=== PATIENT | male | born 1955 | race Two or more races ===

== ENCOUNTER 2016-08-03 12:19 | Emergency (ER) | payer MEDICAID ==
[~2016-08-03] VITALS: Ht 170.2 cm; Wt 83.9 kg
[2016-08-03 13:40] LABS: BASOPHILS % (AUTO) 0.8 % (0.0-2.0); EOSINOPHILS % (AUTO) 1.1 % (0.0-3.0); MEAN CORPUSCULAR HEMOGLOBIN 31.9 PG (27.0-31.0); MEAN CORPUSCULAR HGB CONC 34.6 G/DL (32.0-36.0); MEAN CORPUSCULAR VOLUME 92 FL (80-99); MEAN PLATELET VOLUME 9.2 FL (6.5-10.1); MONOCYTES % (AUTO) 9.4 % (1.0-10.0); NEUTROPHILS % (AUTO) 64.7 % (45.0-75.0); PLATELET COUNT 166 K/UL (150-450); RED BLOOD COUNT 5.09 M/UL (4.70-6.10); RED CELL DISTRIBUTION WIDTH 11.6 % (11.6-14.8)
[2016-08-03 14:00] LABS: ACETAMINOPHEN < 10 ug/mL (10-30); ALANINE AMINOTRANSFERASE 224 U/L (3-41); ALBUMIN/GLOBULIN RATIO 1.3 (1.0-2.7); ALCOHOL < 10 mg/dL; ANION GAP 16 (5-15); ASPARTATE AMINO TRANSFERASE 144 U/L (5-40); CALCIUM 9.4 mg/dL (8.6-10.2); CARBON DIOXIDE 24 mEQ/L (20-30); CHLORIDE 98 mEQ/L (98-107); CREATININE 0.9 mg/dL (0.7-1.2); GLOMERULAR FILTRATION RATE > 60 mL/min (>60); HEMOLYSIS 9; POTASSIUM 3.9 mEQ/L (3.4-4.9); SODIUM 138 mEQ/L (135-145); TOTAL PROTEIN 6.7 g/dL (6.6-8.7)
--- NOTE | 2016-08-03 14:47 | Emergency Room Report ---
History of Present Illness General Chief Complaint: Behavioral Complaint Source: Patient Present Illness HPI The patient is a 61-year-old male with history of schizophrenia brought in by ambulance for hallucinations. The patient states that he called 911 as he continued to hear voices which he knew were not real. He states voices are telling him to hurt himself but he does not want to. The patient states that he has not seen a psychiatrist this year and stopped taking Risperdal 3 months prior. He states that this medication prevented the hallucinations and he was feeling much better with it. He denies any pain at this time and denies injuring himself in any way. He denies suicidal ideation or self harm ideation or homicidal ideation. He denies any other symptoms including nausea, vomiting , fever, chills, chest pain, shortness of breath, headache, dizziness Allergies: Coded Allergies: No Known Allergies (Unverified , 08/03/16) Patient History Past Medical History: see triage record Pertinent Family History: none Reviewed Nursing Documentation: PMH: Agreed, PSxH: Agreed Nursing Documentation-PMH Past Medical History: No History, Except For Hx COPD: Yes History Of Psychiatric Problem: Yes - PTSD, Bipolar, Schizophrenia Review of Systems All Other Systems: negative except mentioned in HPI Physical Exam Vital Signs Date Time Temp Pulse Resp B/P Pulse Ox O2 Delivery O2 Flow Rate FiO2 08/03/16 12:13 97.9 87 16 161/93 99 Sp02 EP Interpretation: reviewed, normal General Appearance: no apparent distress, alert, GCS 15, non-toxic Head: normocephalic, atraumatic Eyes: bilateral eye PERRL, bilateral eye normal inspection ENT: hearing grossly normal, normal pharynx, no angioedema, normal voice Neck: full range of motion, supple/symm/no masses Respiratory: chest non-tender, lungs clear, normal breath sounds, no wheezing, speaking full sentences Cardiovascular #1: regular rate, rhythm, no edema Gastrointestinal: normal bowel sounds, non tender, soft, non-distended, no guarding, no rebound Musculoskeletal: back normal, gait/station normal, normal range of motion, non- tender Neurologic: alert, oriented x3, responsive, motor strength/tone normal, sensory intact, normal gait, speech normal Psychiatric: judgement/insight normal, memory normal, no suicidal/homicidal ideation Skin: normal color, no rash, warm/dry, well hydrated Lymphatic: no adenopathy Medical Decision Making PA Attestation Dr. Michael is my supervising physician. Patient management was discussed with my supervising physician Diagnostic Impression: Primary Impression: Schizophrenia Qualified Codes: F20.9 - Schizophrenia, unspecified ER Course The patient is a 61-year-old male with history of schizophrenia brought in by ambulance for hallucinations Differential diagnoses considered but not limited to psychosis, suicidal ideation, homicidal ideation, depression PE: No apparent distress. A&Ox4 PERRL. EOMI. RRR. No MRG Lungs CTA bilat Abdomen: Normal appearance. Non distended. No ecchymosis. Normal BS. Non TTP. No McBurney point tenderness. No guarding. Skin is warm and dry, no rashes. Blood work is unremarkable. Drug screen positive for marijuana and amphetamines. The patient is given 3 mg of Risperdal in the emergency department as he says this is the dosage that he used to take. The patient is given time to rest in the emergency department and is monitored. The case is discussed with Dr. Downs who is unable to come to the ER at this time. The patient will be discharged and is given outpatient psychiatric referral and a prescription for respiratory. The patient is here to seek psychiatric care and get back on medications. He states he does not want to hurt himself. ER precautions given Laboratory Tests Test 08/03/16 13:29 White Blood Count 9.0 K/UL (4.8-10.8) Red Blood Count 5.09 M/UL (4.70-6.10) Hemoglobin 16.2 G/DL (14.2-18.0) Hematocrit 46.8 % (42.0-52.0) Mean Corpuscular Volume 92 FL (80-99) Mean Corpuscular Hemoglobin 31.9 PG (27.0-31.0) H Mean Corpuscular Hemoglobin Concent 34.6 G/DL (32.0-36.0) Red Cell Distribution Width 11.6 % (11.6-14.8) Platelet Count 166 K/UL (150-450) Mean Platelet Volume 9.2 FL (6.5-10.1) Neutrophils (%) (Auto) 64.7 % (45.0-75.0) Lymphocytes (%) (Auto) 24.0 % (20.0-45.0) Monocytes (%) (Auto) 9.4 % (1.0-10.0) Eosinophils (%) (Auto) 1.1 % (0.0-3.0) Basophils (%) (Auto) 0.8 % (0.0-2.0) Sodium Level 138 mEQ/L (135-145) Potassium Level 3.9 mEQ/L (3.4-4.9) Chloride Level 98 mEQ/L (98-107) Carbon Dioxide Level 24 mEQ/L (20-30) Anion Gap 16 (5-15) H Blood Urea Nitrogen 12 mg/dL (7-23) Creatinine 0.9 mg/dL (0.7-1.2) Estimate Glomerular Filtration Rate > 60 mL/min (>60) Glucose Level 134 mg/dL (74-106) H Calcium Level 9.4 mg/dL (8.6-10.2) Total Bilirubin 0.7 mg/dL (0.0-1.2) Aspartate Amino Transferase (AST) 144 U/L (5-40) H Alanine Aminotransferase (ALT) 224 U/L (3-41) H Alkaline Phosphatase 80 U/L (40-129) Total Protein 6.7 g/dL (6.6-8.7) Albumin 3.9 g/dL (3.5-5.2) Globulin 2.8 g/dL Albumin/Globulin Ratio 1.3 (1.0-2.7) Salicylates Level < 1 mg/dL (10-30) L Urine Opiates Screen Negative (NEGATIVE) Acetaminophen Level < 10 ug/mL (10-30) L Urine Barbiturates Screen Negative (NEGATIVE) Phencyclidine (PCP) Screen Negative (NEGATIVE) Urine Amphetamines Screen Positive (NEGATIVE) H Urine Benzodiazepines Screen Negative (NEGATIVE) Urine Cocaine Screen Negative (NEGATIVE) Urine Marijuana (THC) Screen Positive (NEGATIVE) H Serum Alcohol < 10 mg/dL Lab Results Impression CBC unremarkable. No leukocytosis. CMP shows elevated AST and ALT otherwise unremarkable. Urine drug screen positive for amphetamines and marijuana Last Vital Signs Date Time Temp Pulse Resp B/P Pulse Ox O2 Delivery O2 Flow Rate FiO2 08/03/16 12:13 97.9 87 16 161/93 99 Status: improved Disposition: HOME, SELF-CARE Condition: Improved Scripts Risperidone (RISPERDAL) 3 Mg Tablet 3 MG PO DAILY, #30 TAB Prov: JUAN A ARREOLA 08/03/16 Referrals: [facility],REFERRING (PCP) JUAN A ARREOLA August 03, 2016 14:47
[2016-08-03] MEDS ORDERED: RISPERDAL3 MG PO (16:25)
[2016-08-03 17:58] VITALS: BP 145/87
== END 2016-08-03 19:01 | disposition home or self-care (01) ==
LOC: EDBD 12:19 → EMR 13:48
DX: F20.9 Schizophrenia, unspecified (principal); J44.9 Chronic obstructive pulmonary disease, unspecified; F15.90 Other stimulant use, unspecified, uncomplicated; F12.90 Cannabis use, unspecified, uncomplicated
CPT/HCPCS: 36415; 80053; 80300; 80329; 85025; 99283

== ENCOUNTER 2017-07-29 13:30 | Emergency (ER) | payer MEDICAID ==
[~2017-07-29] VITALS: Ht 177.8 cm; Wt 79.4 kg
[~2017-07-29 13:30] MED LIST: RISPERDAL3 MG PO
[2017-07-29] MEDS ORDERED: BUPROPION XL300 MG ORAL (13:42)
[2017-07-29] MEDS ORDERED: TRAZODONE HCL150 MG ORAL ×2 (13:42→13:48)
--- NOTE | 2017-07-29 14:06 | Emergency Room Report ---
History of Present Illness General Chief Complaint: Behavioral Complaint Source: Patient, Medical Record Present Illness HPI 62-year-old male patient presents ER medication refill. patient reports that he normally takes Wellbutrin, trazodone, risperidone for symptoms. Reports has not taken of the past 6 months. Patient reports that he is hearing voices and has suicidal ideation. patient reports that he thought about hurting himself "earlier" by jumping off his building, denies acute thoughts of suicide at this time. Denies other acute complaints at this time. Reports has not seen primary care provider or mental health specialist in [facility]. Reports hx of meth use, reports last used 3 days ago. Patient requesting transfer to [facility] facility. Allergies: Coded Allergies: ERYTHROMYCIN BASE (Verified Allergy, Unknown, 07/29/17) Patient History Past Medical History: see triage record Reviewed Nursing Documentation: PMH: Agreed; PSxH: Agreed Nursing Documentation-PMH Past Medical History: No History, Except For Hx COPD: Yes Review of Systems All Other Systems: negative except mentioned in HPI Physical Exam Vital Signs Date Time Temp Pulse Resp B/P (MAP) Pulse Ox O2 Delivery O2 Flow Rate FiO2 07/29/17 13:38 98.2 89 18 166/99 97 Room Air 98.2 Sp02 EP Interpretation: reviewed, normal General Appearance: well appearing, no apparent distress, alert, GCS 15, non- toxic Head: normocephalic, atraumatic Eyes: bilateral eye normal inspection, bilateral eye PERRL ENT: hearing grossly normal, normal pharynx, no angioedema, normal voice, TMs + canals normal, uvula midline, moist mucus membranes Neck: full range of motion Respiratory: lungs clear, normal breath sounds, no rhonchi, no respiratory distress, no accessory muscle use, no wheezing, speaking full sentences Cardiovascular #1: regular rate, rhythm, no edema Gastrointestinal: non tender, soft, no mass, non-distended, no guarding, no rebound Genitourinary: no CVA tenderness Musculoskeletal: back normal, digits/nails normal, gait/station normal, normal range of motion, non-tender Neurologic: alert, oriented x3, responsive, motor strength/tone normal, sensory intact Psychiatric: mood/affect normal Skin: no rash Lymphatic: no adenopathy Medical Decision Making PA Attestation Dr. Cottrell is my supervising Physician whom patient management has been discussed with. Diagnostic Impression: Primary Impression: Hearing voices Additional Impression: Behavioral disorder ER Course Pt. presents to the ED requesting medication refill and suicidal thoughts. Ddx considered but are not limited to anxiety, depression, drug use, alcohol use , behavioral disorder. Vital signs: are WNL, pt. is afebrile Ordered labs, urine drug screen, serum alcohol. ER COURSE: CBC shows no elevation in white blood cell count, unremarkable CMP shows mild elevation of potassium, will redraw potassium to recheck levels. Elevation seen in LFTs, consistent with previous visit. Urine drug screen positive for amphetamines and marijuana. Serum alcohol <3, acetaminophen and salicylates levels low. Patient resting comfortably, no acute complaints. Patient requesting placement psychiatric facility. Do not believe patient is an immediate danger to himself or others. Denies suicidal ideation at this time. Patient wants to be transferred to a psych facility. Patient OK with transfer. Patient is hearing voices. informed patient psych facility wasn't handle medications at that time, does not need medications at this time. Don't use meth. Will proceed with voluntary admission to psychiatric facility. Patient potassium redrawn, shows continued elevation. Consult with Dr. Cottrell, elevated potassium in the setting of no elevation in creatinine unlikely, repeat blood draw with peripheral stick. Patient potassium within normal limits. Patient resting comfortably, in no acute distress. Patient talking without difficulty, ambulating independently, eating and drinking fluids without difficulty. Patient medically cleared for discharge to psychiatric hospital. Patient complaining about having to wait for transfer to psychiatric facility. Informed patient that looking to find him a bed at psych facility. Patient states that he doesn't want to wait any longer. Patient denied suicidal ideation at this time. Patient did not want to wait for transfer, patient wanted to leave and stated no longer wanted to be transferred to psych facility. Patient eloped. Labs Test 07/29/17 14:50 07/29/17 17:43 White Blood Count 10.5 K/UL (4.8-10.8) Red Blood Count 5.59 M/UL (4.70-6.10) Hemoglobin 17.8 G/DL (14.2-18.0) Hematocrit 50.0 % (42.0-52.0) Mean Corpuscular Volume 89 FL (80-99) Mean Corpuscular Hemoglobin 31.7 PG (27.0-31.0) Mean Corpuscular Hemoglobin Concent 35.5 G/DL (32.0-36.0) Red Cell Distribution Width 11.4 % (11.6-14.8) Platelet Count 206 K/UL (150-450) Mean Platelet Volume 9.1 FL (6.5-10.1) Neutrophils (%) (Auto) 59.9 % (45.0-75.0) Lymphocytes (%) (Auto) 26.5 % (20.0-45.0) Monocytes (%) (Auto) 10.6 % (1.0-10.0) Eosinophils (%) (Auto) 1.5 % (0.0-3.0) Basophils (%) (Auto) 1.5 % (0.0-2.0) Sodium Level 140 MMOL/L (136-145) Chloride Level 104 MMOL/L (98-107) Carbon Dioxide Level 29 MMOL/L (21-32) Anion Gap 7 mmol/L (5-15) Blood Urea Nitrogen 12 mg/dL (7-18) Creatinine 1.1 MG/DL (0.55-1.30) Estimat Glomerular Filtration Rate > 60 mL/min (>60) Glucose Level 113 MG/DL (74-106) Calcium Level 9.7 MG/DL (8.5-10.1) Total Bilirubin 0.8 MG/DL (0.2-1.0) Aspartate Amino Transf (AST/SGOT) 135 U/L (15-37) Alanine Aminotransferase (ALT/SGPT) 263 U/L (12-78) Alkaline Phosphatase 91 U/L (46-116) Total Protein 7.9 G/DL (6.4-8.2) Albumin 3.9 G/DL (3.4-5.0) Globulin 4.0 g/dL Albumin/Globulin Ratio 1.0 (1.0-2.7) Salicylates Level 2.1 ug/mL (2.8-20) Urine Opiates Screen Negative (NEGATIVE) Acetaminophen Level < 2 MCG/ML (10-30) Urine Barbiturates Screen Negative (NEGATIVE) Phencyclidine (PCP) Screen Negative (NEGATIVE) Urine Amphetamines Screen Positive (NEGATIVE) Urine Benzodiazepines Screen Negative (NEGATIVE) Urine Cocaine Screen Negative (NEGATIVE) Urine Marijuana (THC) Screen Positive (NEGATIVE) Serum Alcohol < 3 mg/dL Potassium Level 4.0 MMOL/L (3.5-5.1) Last Vital Signs Date Time Temp Pulse Resp B/P (MAP) Pulse Ox O2 Delivery O2 Flow Rate FiO2 07/29/17 13:38 98.2 89 18 166/99 97 Room Air 98.2 Disposition: ELOPED Condition: Stable Referrals: [facility],REFERRING (PCP) Patient Instructions: Suicidal Feelings: How to Help Yourself Additional Instructions: Followup with primary care provider in 3 -5 days. Establish care with mental health professional for treatment and management of symptoms. Take medications as directed. Don't use amphetamines. Patient questions asked and answered. ER precautions given, patient instructed to return to ER immediately for any new or worsening of symptoms. Ross Mckeon July 29, 2017 14:06
[2017-07-29 15:21] LABS: BASOPHILS % (AUTO) 1.5 % (0.0-2.0); EOSINOPHILS % (AUTO) 1.5 % (0.0-3.0); HEMOGLOBIN 17.8 G/DL (14.2-18.0); LYMPHOCYTES % (AUTO) 26.5 % (20.0-45.0); MEAN CORPUSCULAR VOLUME 89 FL (80-99); MONOCYTES % (AUTO) 10.6 % (1.0-10.0); NEUTROPHILS % (AUTO) 59.9 % (45.0-75.0); PLATELET COUNT 206 K/UL (150-450); RED BLOOD COUNT 5.59 M/UL (4.70-6.10); RED CELL DISTRIBUTION WIDTH 11.4 % (11.6-14.8); WHITE BLOOD COUNT 10.5 K/UL (4.8-10.8)
[2017-07-29 15:26] VITALS: BP 166/99
[2017-07-29 15:38] LABS: ANION GAP 7 mmol/L (5-15); BLOOD UREA NITROGEN 12 mg/dL (7-18); CALCIUM 9.7 MG/DL (8.5-10.1); CARBON DIOXIDE 29 MMOL/L (21-32); CHLORIDE 104 MMOL/L (98-107); CREATININE 1.1 MG/DL (0.55-1.30); POTASSIUM 5.5 MMOL/L (3.5-5.1); SODIUM 140 MMOL/L (136-145)
[2017-07-29 15:42] LABS: ALANINE AMINOTRANSFERASE 263 U/L (12-78); ALBUMIN 3.9 G/DL (3.4-5.0); ALKALINE PHOSPHATASE 91 U/L (46-116); ASPARTATE AMINO TRANSFERASE 135 U/L (15-37); BILIRUBIN,TOTAL 0.8 MG/DL (0.2-1.0)
[2017-07-29 19:20] VITALS: BP 158/88
[2017-07-29 20:00] VITALS: BP 158/88
== END 2017-07-29 20:00 | disposition left against medical advice (07) ==
LOC: EMR 13:54
DX: R44.0 Auditory hallucinations (principal); F91.9 Conduct disorder, unspecified; Z76.0 Encounter for issue of repeat prescription; J44.9 Chronic obstructive pulmonary disease, unspecified; Z88.1 Allergy status to other antibiotic agents
CPT/HCPCS: 36415; 80053; 80307; 80329; 84132; 85025; 99283

== ENCOUNTER 2018-01-26 14:23 | Emergency (ER) | payer MEDICAID ==
[~2018-01-26] VITALS: Ht 177.8 cm; Wt 81.6 kg
[~2018-01-26 14:23] MED LIST changes: +BUPROPION XL300 MG ORAL; +TRAZODONE HCL150 MG ORAL
[2018-01-26] MEDS ORDERED: Bacitracin Oint UD TOPIC ONE (14:45)
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
[2018-01-26 15:00] VITALS: BP 147/98
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
[2018-01-26] MEDS ORDERED: BACITRACIN15 GM TOPIC (17:18)
[2018-01-26] MEDS ORDERED: IBUPROFEN600 MG ORAL (17:18)
[2018-01-26 17:25] VITALS: BP 149/87
== END 2018-01-26 17:25 | disposition home or self-care (01) ==
LOC: EDBD 14:23 → EMR 16:16
DX: S09.90XA Unspecified injury of head, initial encounter (principal); S02.2XXA Fracture of nasal bones, initial encounter for closed fracture; Y04.2XXA Assault by strike against or bumped into by another person, initial encounter; Y92.9 Unspecified place or not applicable; M50.322 Other cervical disc degeneration at C5-C6 level; J44.9 Chronic obstructive pulmonary disease, unspecified
CPT/HCPCS: 70450; 70486; 72125; 99284

== ENCOUNTER 2018-06-13 22:20 | Emergency (ER) | payer MEDICAID ==
[~2018-06-13] VITALS: Ht 177.8 cm; Wt 81.6 kg
[~2018-06-13 22:20] MED LIST changes: +BACITRACIN15 GM TOPIC; +IBUPROFEN600 MG ORAL; +RISPERDAL0.25 MG ORAL
[2018-06-13 22:35] VITALS: BP 122/81
--- NOTE | 2018-06-13 22:35 | NUR ---
ED Nurse Note: Pt was MIRIA from home, c/o needed medication of Risperidal to be refilled. Pt called 911 by himself. Pt is A/O X4. Vital signs stable at this time, waiting for orders.
--- NOTE | 2018-06-13 23:53 | NUR ---
ED Nurse Note: Meds given as ordered. Pt is sleeping well, will continue to monitor.
--- NOTE | 2018-06-14 03:34 | Emergency Room Report ---
History of Present Illness General Chief Complaint: Medication Refill Source: Patient Present Illness HPI 63-year-old male presents ED for evaluation. Brought in by EMS. States he has history of schizophrenia and needs a refill of his Risperdal. States he has not had it in several weeks. States he is hearing voices. Denies SI or HI. Denies alcohol use or drug use. No other aggravating relieving factors. Denies any other associated symptoms Allergies: Coded Allergies: ERYTHROMYCIN BASE (Verified Allergy, Unknown, 07/29/17) Patient History Past Medical History: psych hx Past Surgical History: none Pertinent Family History: none Social History: Denies: smoking, alcohol use, drug use Immunizations: UTD Reviewed Nursing Documentation: PMH: Agreed; PSxH: Agreed Nursing Documentation-PMH Past Medical History: No History, Except For Hx COPD: Yes History Of Psychiatric Problem: Yes - SI Review of Systems All Other Systems: negative except mentioned in HPI Physical Exam Vital Signs Date Time Temp Pulse Resp B/P (MAP) Pulse Ox O2 Delivery O2 Flow Rate FiO2 06/13/18 22:12 98.6 98 12 120/80 100 Sp02 EP Interpretation: reviewed, normal General Appearance: no apparent distress, alert, GCS 15, non-toxic Head: normocephalic, atraumatic Eyes: bilateral eye normal inspection, bilateral eye PERRL ENT: hearing grossly normal, normal pharynx, no angioedema, normal voice Neck: full range of motion, supple/symm/no masses Respiratory: chest non-tender, lungs clear, normal breath sounds, speaking full sentences Cardiovascular #1: regular rate, rhythm, no edema Cardiovascular #2: 2+ carotid (R), 2+ carotid (L), 2+ radial (R), 2+ radial (L) , 2+ dorsalis pedis (R), 2+ dorsalis pedis (L) Gastrointestinal: normal bowel sounds, non tender, soft, non-distended, no guarding, no rebound Rectal: deferred Genitourinary: normal inspection, no CVA tenderness Musculoskeletal: back normal, gait/station normal, normal range of motion, non- tender Neurologic: alert, oriented x3, responsive, motor strength/tone normal, sensory intact, speech normal Psychiatric: judgement/insight normal, memory normal, no suicidal/homicidal ideation Reflexes: 3+ bicep (R), 3+ bicep (L), 3+ tricep (R), 3+ tricep (L), 3+ knee (R) , 3+ knee (L) Skin: normal color, no rash, warm/dry, well hydrated Lymphatic: no adenopathy Medical Decision Making Homeless Attestation I, The treating physician Dr. Michael, has assessed and agrees that patient is medically stable for discharge to an outpatient disposition. Diagnostic Impression: Primary Impression: Encounter for medication refill Additional Impression: Schizophrenia Qualified Codes: F20.9 - Schizophrenia, unspecified ER Course 63-year-old male presents to ED refill of his medication. History of schizophrenia - takes risperdol hospital course: After initial history and physical, I reviewed EMR which shows prior visits where patient has been taking Risperdal. Patient documents hearing voices here but no SI or HI. Not danger to self or others at this time. Given Risperdal here in ED. Allowed to sleep. Patient will be discharged in the morning. Homeless checklist completed. We'll provide mental health referrals Diagnosis-encounter for medication refill, schizophrenia Stable and discharged to home with prescription for Risperdol. Followup with PMD/psych. Return to ED if symptoms recur or worsen Last Vital Signs Date Time Temp Pulse Resp B/P (MAP) Pulse Ox O2 Delivery O2 Flow Rate FiO2 06/13/18 22:12 98.6 98 12 120/80 100 Status: improved Disposition: HOME, SELF-CARE Condition: Stable Scripts Risperidone* (RISPERDAL*) 2 Mg Tablet 2 MG ORAL DAILY, #30 TAB 0 Refills Prov: Xavier Michael MD 06/14/18 Referrals: [facility],REFERRING (PCP) Xavier Michael MD Jun 14, 2018 03:34
[2018-06-14] MEDS ORDERED: RISPERDAL2 MG ORAL (04:40)
[2018-06-14 05:46] VITALS: BP 127/74
--- NOTE | 2018-06-14 05:46 | NUR ---
ER DISCHARGE NOTE: Patient is cleared to be discharged per Dr. Michael. Meds given as ordered. Pt is A/Ox4 on room air with stable vital signs, pt was given dc and prescription instructions, pt was able to verbalize understanding, pt ID band removed. pt is able to ambulate with steady gait and pt took all belongings.
== END 2018-06-14 05:46 | disposition home or self-care (01) ==
LOC: EDBD 22:20 → EMR 06-14 01:00
DX: Z76.0 Encounter for issue of repeat prescription (principal); F20.9 Schizophrenia, unspecified
CPT/HCPCS: 99282

== ENCOUNTER 2018-06-16 19:26 | Emergency (ER) | payer MEDICAID ==
[~2018-06-16] VITALS: Ht 177.8 cm; Wt 81.6 kg
[~2018-06-16 19:26] MED LIST changes: +RISPERDAL2 MG ORAL
[2018-06-16 20:10] VITALS: BP 179/82
--- NOTE | 2018-06-16 20:10 | NUR ---
ED Nurse Note: Patient walked into ED c/o high blood pressure. at time of arrival patient's blood prssure was 172/89. patient denies any headache or pain at all, does not complain of chest pain as well. PAtient admits to prior drug use prior to coming here, states that he was under the influence of meth 2 days prior. patient is alert and oriented x4, ambulatory with a steady gait, VSS
--- NOTE | 2018-06-16 21:00 | NUR ---
ER DISCHARGE NOTE: Patient is cleared to be discharged per ERMD, pt is aox4, on room air, with stable vital signs. pt was given dc and prescription instructions, pt was able to verbalize understanding, pt id band removed without complications. pt is able to ambulate with steady gait. pt took all belongings.
--- NOTE | 2018-06-16 22:51 | Emergency Room Report ---
History of Present Illness General Chief Complaint: Hypertension Present Illness HPI Patient is a 63-year-old male who presented after increased high blood pressure. Patient reports having taken his blood pressure at a drugstore and was noted to have elevated blood pressure at that time. Patient prior history of COPD and states has been having some slight increased difficulty with breathing. He reports having recent methamphetamine use. He states he did this approximately 3 days ago. He denies taking any medications for his blood pressure. He denies any prior cardiac history. He denies any chest pain or severe headache or back pain. Allergies: Coded Allergies: ERYTHROMYCIN BASE (Verified Allergy, Unknown, 07/29/17) Patient History Reviewed Nursing Documentation: PMH: Agreed; PSxH: Agreed Nursing Documentation-PMH Hx COPD: Yes Review of Systems All Other Systems: negative except mentioned in HPI Physical Exam Vital Signs Date Time Temp Pulse Resp B/P (MAP) Pulse Ox O2 Delivery O2 Flow Rate FiO2 06/16/18 19:58 98.4 63 16 179/82 97 Room Air General Appearance: well appearing, no apparent distress, alert, GCS 15 Head: normocephalic, atraumatic ENT: hearing grossly normal, normal voice Neck: full range of motion, supple Respiratory: no respiratory distress, speaking full sentences Gastrointestinal: normal inspection Musculoskeletal: normal inspection, no calf tenderness Neurologic: normal inspection, alert, oriented x3, responsive, normal gait Psychiatric: mood/affect normal Skin: no rash Medical Decision Making Diagnostic Impression: Primary Impression: Hypertension ER Course Patient presented for hypertension. Patient differential diagnosis include was not limited to asymptomatic hypertension, myocardial infarction, COPD among others. Patient has a benign exam and does not appear to require any further imaging or laboratory testing at this time. Patient was noted to have some mild shortness of breath which he states he takes inhalers for at home. Patient was noted to have recent substance abuse and was advised not to use drugs. Patient was advised smoking cessation. He was advised to return if he felt any worse. He was advised to return if he began having any other concerns or suicidal thoughts. Last Vital Signs Date Time Temp Pulse Resp B/P (MAP) Pulse Ox O2 Delivery O2 Flow Rate FiO2 06/16/18 21:00 98.4 75 16 152/80 97 Room Air Status: improved Disposition: HOME, SELF-CARE Condition: Stable Referrals: [facility],REFERRING (PCP) Patient Instructions: Hypertension Yimi Solorio MD Jun 16, 2018 22:51
== END 2018-06-16 21:00 | disposition home or self-care (01) ==
LOC: EMR 20:34
DX: I10 Essential (primary) hypertension (principal); J44.9 Chronic obstructive pulmonary disease, unspecified; Z88.8 Allergy status to other drugs, medicaments and biological substances
CPT/HCPCS: 93005; 99283

== ENCOUNTER 2019-03-23 01:42 | Emergency (ER) | payer MEDICAID ==
[~2019-03-23] VITALS: Ht 177.8 cm; Wt 86.2 kg
[2019-03-23 02:49] VITALS: BP 143/89
[2019-03-23] MEDS ORDERED: RISPERDAL2 MG ORAL (03:05)
[2019-03-23] MEDS ORDERED: WELLBUTRIN XL150 MG ORAL (03:05)
[2019-03-23] MEDS ORDERED: TRAZODONE HCL150 MG ORAL (03:05)
--- NOTE | 2019-03-23 03:05 | Emergency Room Report ---
History of Present Illness General Chief Complaint: Medication Refill Source: Patient Present Illness HPI Is a 63-year-old male with a history of schizophrenia. He said he is out of his medication for last 6 months. He said he is been trying to deal with it but is not getting any better. He presents with chief complaint of increasing hearing voices. This prevents him from sleeping very well. He wants to be back on his medication. Not suicidal or homicidal. No fever chills but no nausea no vomiting but denies any drug use. No other complaint. Allergies: Coded Allergies: ERYTHROMYCIN BASE (Verified Allergy, Unknown, 07/29/17) Patient History Past Medical History: see triage record, old chart reviewed, schizophrenia Past Surgical History: other Family History: none Social History: tobacco use Immunizations: other Reviewed Nursing Documentation: PMH: Agreed; PSxH: Agreed Nursing Documentation-PMH Past Medical History: No History, Except For Hx COPD: Yes Review of Systems ENT: Denies: sore throat Cardiovascular: Denies: chest pain, palpitations Gastrointestinal/Abdominal: Denies: nausea, vomiting, diarrhea Musculoskeletal: Denies: back problems Skin: Denies: rash Neurological: Denies: MELGAR, seizures All Other Systems: negative except mentioned in HPI Physical Exam Vital Signs Date Time Temp Pulse Resp B/P (MAP) Pulse Ox O2 Delivery O2 Flow Rate FiO2 03/23/19 01:45 98.4 80 14 162/95 (117) 98 Room Air Vitals with high blood pressure Sp02 EP Interpretation: reviewed, normal General Appearance: alert/responsive, no apparent distress, non-toxic Head: normocephalic, atraumatic Eyes: PERRL, EOMI ENT: oropharynx normal Neck: supple/symm/no masses Respiratory: effort normal, no rhonchi, no wheezing Cardiovascular: no murmur, gallop, rub Gastrointestinal: non-tender, no mass, non-distended, no rebound/guarding, normal bowel sounds Musculoskeletal: gait & station normal Neurologic: oriented x3, sensory intact, motor strength/tone normal Skin: no rash, normal palpation Medical Decision Making Diagnostic Impression: Primary Impression: Encounter for medication refill Additional Impression: Psychosis Qualified Codes: F23 - Brief psychotic disorder ER Course Patient with psychosis. He is actually very calm. No homicidal thought. No criteria for 5150. Will discharge home. Last Vital Signs Date Time Temp Pulse Resp B/P (MAP) Pulse Ox O2 Delivery O2 Flow Rate FiO2 03/23/19 02:49 98.4 74 14 143/89 98 Room Air Status: improved Disposition: HOME, SELF-CARE Condition: Stable Scripts Bupropion Hcl* (WELLBUTRIN XL*) 150 Mg Tab.er.24h 150 MG ORAL DAILY for 30 Days, TAB 0 Refills Prov: Tani Batista MD 03/23/19 Trazodone* (TRAZODONE*) 150 Mg Tablet 150 MG ORAL BEDTIME, #30 TAB Prov: Tani Batista MD 03/23/19 Risperidone* (RISPERDAL*) 2 Mg Tablet 2 MG ORAL DAILY, #30 TAB 0 Refills Prov: Tani Batista MD 03/23/19 Patient Instructions: Medicine Refill at the Emergency Department Additional Instructions: Follow up with mental health within 7 days. Return if symptoms worsen. Tani Batista MD Mar 23, 2019 03:05
[2019-03-23 03:15] VITALS: BP 135/81
== END 2019-03-23 03:15 | disposition home or self-care (01) ==
LOC: EDBD 01:42 → EDUNIT# 01:42 → EMR 02:45
DX: F23 Brief psychotic disorder (principal); J44.9 Chronic obstructive pulmonary disease, unspecified
CPT/HCPCS: 99282

== ENCOUNTER 2019-05-06 20:13 | Emergency (ER) | payer MEDICAID ==
[~2019-05-06] VITALS: Ht 177.8 cm; Wt 83.9 kg
[~2019-05-06 20:13] MED LIST changes: +WELLBUTRIN XL150 MG ORAL
--- NOTE | 2019-05-06 20:23 | NUR ---
called the patient, patient not in the waiting room
[2019-05-06 20:52] VITALS: BP 165/98
--- NOTE | 2019-05-06 20:52 | NUR ---
ED Nurse Note: Patient walked in from home d/t left lower arm "abscess", wound intact, clean, and dry. Patient aao x 4 and ambulatory. Patient stable upon assessment.
--- NOTE | 2019-05-06 20:54 | NUR ---
ED Nurse Note: ERMD at bedside.
[2019-05-06] MEDS ORDERED: Lidocaine HCl 2% Jelly 6ml Tube TOPIC ONE (21:00)
--- NOTE | 2019-05-06 21:03 | Emergency Room Report ---
History of Present Illness General Chief Complaint: Skin Rash/Abscess Source: Patient Present Illness HPI Patient is a 64-year-old male presents after increased discomfort and swelling to the left upper extremity. Reports having increased itchiness. Denies any fever. Reports having scratched the area and having initially had larger lesion which had subsequently shrunk in size. Denies any purulent drainage. Had been having some slight left upper extremity pain. Previously been referred to dermatology by his physician. Allergies: Coded Allergies: ERYTHROMYCIN BASE (Verified Allergy, Unknown, 07/29/17) Patient History Past Medical History: see triage record Reviewed Nursing Documentation: PMH: Agreed; PSxH: Agreed Nursing Documentation-PMH Hx COPD: Yes History Of Psychiatric Problem: Yes Review of Systems All Other Systems: negative except mentioned in HPI Physical Exam Vital Signs Date Time Temp Pulse Resp B/P (MAP) Pulse Ox O2 Delivery O2 Flow Rate FiO2 05/06/19 20:42 98.2 74 18 168/82 (110) 97 Room Air General Appearance: well appearing, no apparent distress, alert, GCS 15 Head: normocephalic, atraumatic ENT: hearing grossly normal, normal voice Neck: full range of motion, supple Respiratory: normal inspection, no respiratory distress, speaking full sentences Cardiovascular #1: normal inspection, regular rate, rhythm Gastrointestinal: normal inspection Musculoskeletal: normal inspection Neurologic: alert, motor strength/tone normal, manager payroll III-XII nml as tested, normal gait Psychiatric: mood/affect normal Skin: other - Left upper extremity with approximately 1.5cm nodular lesion to the anterior forearm with rolled borders and is sharp to the central area Medical Decision Making Diagnostic Impression: Primary Impression: Skin lesion of left arm ER Course Patient present for skin lesion. Differential diagnosis include was not limited to keratoacanthoma, skin infection, abscess, skin cancer among others. Patient's lesion does not appear to be an abscess and does not to be appear to be any purulent material. There does appear to be some slight secondary infection from excoriation. Patient's lesion does appear to be consistent with a possible skin cancer and patient was advised of this. He was advised to have the lesion excised by either dermatology or general surgery. Patient was advised to follow-up with previous dermatology referral. He was given prescription for oral antibiotics. He is advised to return if worse. The patient is advised to follow up with primary care doctor. Patient is advised to return if any worsening condition or if any changes in status that are concerning. This report is dictated with [employer] traffic representative software which may occasionally lead to discrepancies related to use of this software. Last Vital Signs Date Time Temp Pulse Resp B/P (MAP) Pulse Ox O2 Delivery O2 Flow Rate FiO2 05/06/19 20:52 98.2 98 17 165/98 96 Room Air Status: improved Disposition: HOME, SELF-CARE Condition: Stable Yimi Solorio MD May 06, 2019 21:03
[2019-05-06] MEDS ORDERED: LD2JL30 TOPIC (21:04)
[2019-05-06] MEDS ORDERED: CEPHALEXIN500 MG ORAL (21:04)
--- NOTE | 2019-05-06 21:09 | NUR ---
ER DISCHARGE NOTE: Patient is cleared to be discharged per ERMD, pt is aox4, on room air, with stable vital signs. pt was given dc and prescription instructions, pt was able to verbalize understanding, pt id band removed. pt skin lesion dressed with dry dressing. pt is able to ambulate with steady gait. pt took all belongings. pt stable upon discharge.
== END 2019-05-06 21:09 | disposition home or self-care (01) ==
LOC: EMR 21:00
DX: L98.9 Disorder of the skin and subcutaneous tissue, unspecified (principal); J44.9 Chronic obstructive pulmonary disease, unspecified; Z88.1 Allergy status to other antibiotic agents
CPT/HCPCS: 99282